=== PATIENT | male | born 1965 | race Caucasian/White ===

== ENCOUNTER 2020-03-22 00:50 | Outpatient (CLI) | payer BC, SELFPAY ==
[2020-03-22 19:19] LABS: SARS-CoV-2 RNA PCR Negative
== END 2020-03-22 00:51 | disposition home or self-care (01) ==
LOC: ANHCOVIDDT 00:51
PROVIDERS: PCP Internal Medicine; Visit Provider Internal Medicine Gastroenterology
DX: Z01.812 Encounter for preprocedural laboratory examination (principal); Z20.828 Contact with and (suspected) exposure to other viral communicable diseases
CPT/HCPCS: 87635; C9803; U0003

== ENCOUNTER 2020-03-24 00:48 | Day surgery (SDC) | payer BC, SELFPAY ==
[2020-03-20 13:59] VITALS: BMI 31.8
--- NOTE | 2020-03-20 14:12 | PC.NURSE ---
ATTEMPTED TO COVER PAT TOPICS WITH PATIENT. PATIENT INTERRUPTED THIS NURSE AND STATED HE WAS AT WORK AND DIDN'T HAVE TIME FOR THIS AND THIS WASN'T HIS FIRST COLONOSCOPY. I APOLOGIZED AND STATED I DIDN'T KNOW HE WAS AT WORK AND THAT HE COULD CALL ME BACK AND HE SAID THAT WAS UNNECESSARY BECAUSE HE KNOWS WHAT TO DO. RUTH LY.
[2020-03-24 06:41] VITALS: BP 104/80; PULSE 72; RESP 18; TEMP 36.4; O2SAT 98
[2020-03-24] MEDS: LACTATED RINGERS 1,000 ML 150 ML IV CONT (06:54)
--- NOTE | 2020-03-24 07:17 | PM.HPGS ---
History of Present Illness History of Present Illness Consent: Risks, benefits, and alternatives have been discussed and questions answered. Patient agrees to proceed with procedure. Chief complaint: Neoplasm Screening Narrative: Edward Manuel is a 54 year old male Here for colon cancer screening [facility] Social History Social History Smoking packs per day: 2 Smoking cigarettes per day: 40.0 Years smoked: 15 Smoking pack-years: 30.00 Smoking status: Former smoker Tobacco type: cigarettes Alcohol intake: current Drinks per week: 0 Alcohol use details: 1 OR 2 DRINKS PER MONTH Substance use: current Substance use type: marijuana Living arrangements: with family Spiritual care concerns: No Meds Home Medications and Allergies Home Medications Medication Instructions Recorded Confirmed Type lisinopril 20 mg PO DAILY 03/20/20 03/20/20 History loratadine [Claritin] 10 mg PO DAILY 03/20/20 03/20/20 History sildenafil 100 mg PO PRN 03/20/20 03/20/20 History testosterone 2 pump TOPICAL DAILY 03/20/20 03/20/20 History zolpidem 10 mg PO PRN PRN 03/20/20 03/20/20 History Allergies Allergy/AdvReac Type Severity Reaction Status Date / Time morphine AdvReac Mild Other Verified 03/24/20 06:40 Vital Signs Vital Signs - 24 hr 03/24/20 06:41 Temperature 36.4 C Pulse Rate 72 Respiratory Rate 18 Blood Pressure 104/80 Pulse Oximetry 98 Exam Resp: Auscultation: clear to auscultation bilaterally Cardio: Rate: regular rate Rhythm: regular rhythm GI: GI Palp: Yes Soft to palpation and No Tenderness to palpation present (GI) Assessment and Plan Assessment and plan (1) Colon cancer screening: Code(s): Z12.11 - Encounter for screening for malignant neoplasm of colon Status: Acute Assessment and Plan: Colonoscopy with possible biopsy or polypectomy or cautery or injection of substances.
--- NOTE | 2020-03-24 07:30 | WPDANESEPPF ---
Anes - Initial Pre Proc Eval Procedure: Operation Date: 03/24/20 08:00 Proposed Procedures p Screening Colonoscopy - Brandon Becker MD Date/Time: 03/24/20 07:30 Surgeon: Brandon Becker MD Pre Op Diagnosis: Neoplasm Screening Patient Data Age: 54 Gender: M Height: 5 ft 9 in Weight: 97.3 kg Last Vital Signs Temp 97.6 F 03/24/20 06:41 Pulse 72 03/24/20 06:41 Resp 18 03/24/20 06:41 BP 104/80 03/24/20 06:41 Pulse Ox 98 03/24/20 06:41 Allergies Allergy/AdvReac Type Severity Reaction Status Date / Time morphine AdvReac Mild Other Verified 03/24/20 06:40 Home Medications Medication Instructions Recorded Confirmed Type lisinopril 20 mg PO DAILY 03/20/20 03/20/20 History loratadine [Claritin] 10 mg PO DAILY 03/20/20 03/20/20 History sildenafil 100 mg PO PRN 03/20/20 03/20/20 History testosterone 2 pump TOPICAL DAILY 03/20/20 03/20/20 History zolpidem 10 mg PO PRN PRN 03/20/20 03/20/20 History Patient hx anesthesia problems: none Family hx anesthesia problems: none PMFSH Past Medical History Medical History (Updated 03/24/20 @ 07:26 by Mich Mac MD) GERD (gastroesophageal reflux disease) Hypertension Social History Social History Smoking packs per day: 2 Smoking cigarettes per day: 40.0 Years smoked: 15 Smoking pack-years: 30.00 Smoking status: Former smoker Tobacco type: cigarettes Alcohol intake: current Drinks per week: 0 Alcohol use details: 1 OR 2 DRINKS PER MONTH Substance use: current Substance use type: marijuana Living arrangements: with family Spiritual care concerns: No Anes - Eval Final PreProcedure Day of Procedure 03/24/20 07:30 Patient weight: overweight Heart: regular rate and rhythm Lungs: clear to auscultation Airway: Mallampati scale class II Neurological: alert and oriented Last oral intake: >/= 8 hours ASA classification: II Emergent: no Anesthetic plan: proceed Anesthesia type and monitoring: general GIVS and standard monitoring Informed Consent: The patient's anesthetic plan and its attendant risks and benefits were discussed with the patient/family/POA. Questions were solicited and answers provided to the satisfaction of the patient/family/POA.
[2020-03-24] MEDS: SIMETHICONE ORAL SUSPENSION 20 MG/0.3 ML 30 ML BOTTLE 0.6 ML IRRIGATION (08:05)
[2020-03-24 08:11] VITALS: BP 92/51; PULSE 67; RESP 19; O2SAT 98
[2020-03-24 08:22] VITALS: BP 106/64; PULSE 56; RESP 17; O2SAT 100
[2020-03-24 08:31] VITALS: BP 115/60; PULSE 56; RESP 19; O2SAT 100
== END 2020-03-24 08:40 | disposition home or self-care (01) ==
PROVIDERS: PCP Internal Medicine; Visit Provider Internal Medicine Gastroenterology
PROC: 0DJD8ZZ Inspection of Lower Intestinal Tract, Via Natural or Artificial Opening Endoscopic (ICD-10-PCS; CPT 45378; principal; 2020-03-24 08:00)
DX: Z12.11 Encounter for screening for malignant neoplasm of colon (principal); D12.5 Benign neoplasm of sigmoid colon; K57.30 Diverticulosis of large intestine without perforation or abscess without bleeding; K64.8 Other hemorrhoids; I10 Essential (primary) hypertension; K21.9 Gastro-esophageal reflux disease without esophagitis; Z87.891 Personal history of nicotine dependence; F12.90 Cannabis use, unspecified, uncomplicated
CPT/HCPCS: 45385; 88305; J2704; J7120

== ENCOUNTER 2021-09-14 14:12 | Outpatient (CLI) | payer BC, SELFPAY ==
--- NOTE | ~2021-09-14 | MR_ITS ---
EXAMINATION: MR lumbar spine wo con DATE: 09/14/2021 14:58 INDICATION: Low back pain. TECHNIQUE: Magnetic resonance imaging (MRI) of the lumbar spine was performed without intravenous con trast. Sequences included sagittal T2-weighted FSE, sagittal T2-weighted FS FSE, sagittal T1-weighted FSE, and axial T2-weighted FSE. COMPARISON: None FINDINGS: There is 3 degrees dextrocurvature of lumbar spine. There is 3 mm retrolisthesis of L2 on L 3. Vertebral body heights are normal. There is mildly decreased disc height at L2-L3 and L3-L4, moder ately decreased disc height at L4-L5, and severely decreased disc height at L5-S1 with endplate remod eling. The distal spinal cord signal intensity is normal. The conus medullaris is at L2. The followin g disc levels are specifically discussed: L1-L2: The disc does not extend beyond the endplate margin. There is mild bilateral facet joint osteo arthritis. There is no neural foraminal stenosis. There is no central canal stenosis. L2-L3: The disc is bulging and has an annular fissure. There is moderate right and mild left facet roberta int osteoarthritis. There is mild bilateral neural foraminal stenosis. There is mild central canal st enosis. L3-L4: The disc is bulging and has an annular fissure. There is severe bilateral facet joint osteoart hritis. There is mild right and moderate left neural foraminal stenosis. There is mild central canal stenosis. L4-L5: The disc is bulging and has an annular fissure. There is severe bilateral facet joint osteoart hritis. There is mild right and moderate left neural foraminal stenosis. There is mild central canal stenosis. L5-S1: The disc is bulging and has an annular fissure. There is severe bilateral facet joint osteoart hritis. There is mild right and moderate left neural foraminal stenosis. There is mild central canal stenosis. IMPRESSION: 1. Severe lumbar spondylosis. Reviewed, dictated and finalized at location A.
== END 2021-09-14 14:13 | disposition home or self-care (01) ==
PROVIDERS: PCP Internal Medicine; Visit Provider Internal Medicine
DX: M47.896 Other spondylosis, lumbar region (principal)
CPT/HCPCS: 72148

== ENCOUNTER 2023-11-20 11:56 | Outpatient (CLI) | payer MEDICAID, SELFPAY ==
--- NOTE | ~2023-11-20 | CT_ITS ---
CT Scan of the Chest without Contrast: Clinical Indication: Lung cancer screening, nicotine dependence Technique: Contiguous sections were acquired throughout the chest without intravenous contrast. Dose reduction technique was used on this scan by utilizing automated exposure control and iterative recon struction technique. The dose-length product (DLP) was 140.55 mGy-cm. Findings: There is no evidence of any significant mediastinal, hilar or axillary lymphadenopathy. Coronary carmela ry calcifications are present. Small to moderate hiatal hernia present. There is no evidence of pleural or pericardial effusion. The lungs are clear. No pulmonary nodules or infiltrates are noted. Images through the upper abdomen reveal peripherally calcified spinal axis. Impression: Lung RADS 1: Negative. 12 month follow-up screening CT advised. Reviewed, dictated and finalized at [facility]. Impression: Lung RADS 1: Negative. 12 month follow-up screening CT advised.
--- NOTE | ~2023-11-20 | MR_ITS ---
Procedure: MR lumbar spine wo con Ordering provider: Bertrand Hill, History: 58 years Male with . LUMBAR RADICULOPATHY . Comparison: September 18, 2021 Technique: MRI lumbar spine without contrast. FINDINGS: CONUS MEDULLARIS: Normal in position and appearance. The conus ends at the level of L1/L2. LUMBAR VERTEBRAL BODIES: Postoperative changes are seen at the level of L3, L4 and L5 with a status p ost laminectomy at the level of L4. No compression fracture or subluxation. Normal marrow signal. DISK SPACES: Narrowing of the disc L4-L5 is seen. Disc protrusion is seen at the level of L2-L3. T12-L1: No stenosis. L1-L2: No stenosis. L2-L3: No stenosis. Disc protrusion with mild to moderate spinal canal stenosis. Bilateral narrowing of the foraminal with nerve root compression is noted. Thickening of the ligamenta flava is seen in the area. T2 hyperintense signal areas seen posteriorly in the spinal canal which appears slightly h yperintense on T1-weighted images another area is also seen opposite L3. L3-L4: No stenosis. Mild disc bulge. L4-L5: No stenosis. Mild disc bulge. Cystic changes are seen in the laminectomy area most likely flu id collection measuring 12.6 x 1.1 cm.. L5-S1: No stenosis. Diffuse disc bulge with narrowing of the foramina and the root compression bilat erally PARASPINOUS SOFT TISSUES: Normal. IMPRESSION: 1. Postoperative changes of the level of L3, L4 and L5. 2. Disc protrusion at the level of L2-L3 With moderate spinal canal stenosis and with T2 hyperintens e signal area seen posteriorly. Bony fragment is a possibility although not definite. 3. Fluid collection seen posterior to the L4 in the area of the laminectomy measuring 12.6 x 1.1 cm. 4. Diffuse disc bulge at the level of L5-S1 with bilateral lateral neural foramen and with compressi on. Reviewed, dictated and finalized at location A. IMPRESSION: 1. Postoperative changes of the level of L3, L4 and L5. 2. Disc protrusion at the level of L2-L3 With moderate spinal canal stenosis a nd with T2 hyperintense signal area seen posteriorly. Bony fragment is a possib ility although not definite. 3. Fluid collection seen posterior to the L4 in the area of the laminectomy me asuring 12.6 x 1.1 cm. 4. Diffuse disc bulge at the level of L5-S1 with bilateral lateral neural fora men and with compression.
== END 2023-11-20 11:57 | disposition home or self-care (01) ==
PROVIDERS: PCP Internal Medicine; Visit Provider Internal Medicine
DX: Z12.2 Encounter for screening for malignant neoplasm of respiratory organs (principal); M54.16 Radiculopathy, lumbar region; Z87.891 Personal history of nicotine dependence; Z98.890 Other specified postprocedural states; M48.061 Spinal stenosis, lumbar region without neurogenic claudication; M51.37 Other intervertebral disc degeneration, lumbosacral region; Z98.1 Arthrodesis status
CPT/HCPCS: 71271; 72148

== ENCOUNTER 2024-02-21 08:46 | Emergency (ER) | payer OTHER, SELFPAY ==
[2024-02-21] VITALS (15 sets, daily range): BP systolic 139–231; BP diastolic 78–134; PULSE 61–147; RESP 12–27; TEMP 35.8–36.6; O2SAT 97–100
--- NOTE | ~2024-02-21 | CT_ITS ---
EXAMINATION: CT facial bones w con DATE: 02/21/2024 09:50 INDICATION: Jose's angina on the left. TECHNIQUE: Computed tomography (CT) of the facial bones and maxillofacial region was performed with 7 5 mL Omnipaque 350 intravenous contrast. Automated exposure control and iterative reconstruction tech [employer] were employed. The dose-length product was 797.73 mGy-cm. COMPARISON: None. FINDINGS: There is left face soft tissue swelling. There is leftward deviation of the nasal septum. T here is mild mucosal thickening in the paranasal septum sinuses. There are periapical lucencies at to oth 19 with breech of the buccal cortex of the alveolar process with 10 x 2 mm subperiosteal abscess. There are changes of anterior fusion procedure from C5 C7. IMPRESSION: 1. Periapical lucencies of tooth 19 with subperiosteal abscess. Reviewed, dictated and finalized at location A.
--- NOTE | ~2024-02-21 | XR_ITS ---
EXAMINATION: XR abdomen gastric tube insert DATE: 02/21/2024 10:45 INDICATION: Nasogastric tube placement. TECHNIQUE: A supine view of the abdomen was obtained. COMPARISON: None. FINDINGS: The lower abdomen is excluded. The nasogastric tube tip is in the stomach. IMPRESSION: 1. Nasogastric tube tip in the stomach. Reviewed, dictated and finalized at location A.
--- NOTE | ~2024-02-21 | XR_ITS ---
EXAMINATION: XR chest ET placement DATE: 02/21/2024 10:45 INDICATION: Intubation. TECHNIQUE: A single frontal view of the chest was obtained. COMPARISON: Chest CT 11/20/2023 FINDINGS: There is no pneumonia, pleural effusion, or pneumothorax. The heart size is normal. The end otracheal tube tip is 4.1 cm above the randal. The nasogastric tube tip is beyond the inferior margin of the radiograph, but at least to the stomach. There are changes of anterior fusion procedure in ce rvical spine. IMPRESSION: 1. No acute cardiopulmonary disease. Reviewed, dictated and finalized at location A.
[2024-02-21] MEDS: HYDROmorphone HCL INJ (*CRX) 1 MG/ML SYR IV PUSH (09:41)
[2024-02-21] MEDS: LACTATED RINGERS 1,000 ML 999 ML IV CONT (09:41)
[2024-02-21] MEDS: AMPICILLIN SULB 3 GM/NS 100 ML 3 GM/100 ML VIAL IVPB (09:41)
[2024-02-21 09:53] LABS: Basophils Absolute Auto 0.1 K/mm3 (0.0-0.1); Basophils Percent Auto 0.6 % (0.2-1.2); Eosinophils Absolute Auto 0.2 K/mm3 (0-0.3); Hematocrit 40.6 % (42.0-52.0); Hemoglobin 13.9 g/dL (14.0-18.0); Immature Granulocyte Absolute 0.04 K/mm3 (0.00-0.031); Immature Granulocyte Percent A 0.4 % (0-0.5); Lymphocytes Absolute Auto 1.26 K/mm3 (0.9-3.2); Lymphocytes Percent Auto 12.8 % (18.3-44.2); Mean Corpuscular HGB Conc 34.2 g/dl (32-36); Mean Corpuscular Hemoglobin 31.8 pg (26-34); Mean Corpuscular Volume 92.9 fl (80-100); Mean Platelet Volume 10.5 fl (7.4-10.4); Monocytes Absolute Auto 0.8 K/mm3 (0.1-0.6); Monocytes Percent Auto 8.1 % (2.6-8.5); Neutrophils Absolute Auto 7.5 K/mm3 (1.3-6.7); Neutrophils Percent Auto 76.1 % (45.5-73.1); Platelet Count Result 202 k/mm3 (150-375); Red Blood Count 4.37 M/mm3 (4.6-6.20); Red Cell Distribution Width 12.7 % (11.5-14.5); White Blood Count 9.9 K/mm3 (4.5-10.0)
[2024-02-21 09:59] LABS: Estimated CRCL calculation 86 ml/min; Estimated Glomerular Filt Rate > 60
[2024-02-21 10:01] LABS: Anion Gap 10 mmol/L (4-12); Blood Urea Nitrogen 14 mg/dL (9-20); Calcium 9.1 mg/dL (8.4-10.2); Carbon Dioxide 21 mmol/L (22-30); Chloride 106 mmol/L (98-107); Estimated CRCL calculation 96 ml/min; Estimated Glomerular Filt Rate > 60; Glucose 114 mg/dL (65-110); Lactic Acid Reflex 1.4 mmol/L (0.7-2.0); Potassium 4.2 mmol/L (3.4-5.0); Sodium 137 mmol/L (137-145)
[2024-02-21 10:04] LABS: INR 0.9; Prothrombin Time 12.5 Seconds (11.1-14.7)
[2024-02-21 10:05] LABS: Partial Thromboplastin Time 21.5 Seconds (22.3-36.8)
--- NOTE | 2024-02-21 10:20 | PC.NURSE ---
EDP Dr Gomez and resp at bedside to prepare for intubation
--- NOTE | 2024-02-21 10:23 | PC.NURSE ---
Dr Chauhan at bedside, pt given 20 etomidate, 100 rocuronium given for sedation
--- NOTE | 2024-02-21 10:27 | PC.NURSE ---
Pt intubated with 7.5 tube, 23 @ the lip, positive color change, equal chest rise and fall
--- NOTE | 2024-02-21 10:30 | PC.NURSE ---
100 bolus Fentanyl given per [facility] EDP Dr Chauhan at bedside, Fentanyl drip initiated at 10mls/hr per weight
[2024-02-21] MEDS: FENTANYL 2,500MCG/NS250ML(*CRX 2,500 MCG/250 ML BAG 10 MCG (10:33)
[2024-02-21] MEDS: RAPID SEQUENCE INTUBATION KIT 1 EACH (10:35)
--- NOTE | 2024-02-21 10:48 | PC.NURSE ---
Per Dr Tien LEWIS at pt bedside, 5mg Versed given IVP for pt agitation and elevated BP
--- NOTE | 2024-02-21 11:06 | PC.NURSE ---
Call was placed to [facility] per Dr Chauhan. ENT Dr. Parada. [facility] did not accept pt.
--- NOTE | 2024-02-21 11:10 | PC.NURSE ---
[facility] center was called for transfer per Dr. Chauhan. [facility] advised us to call elsewhere for transfer placement with what the pt has going on.
--- NOTE | 2024-02-21 11:31 | PC.NURSE ---
[facility] in [facility] was called per Dr. Chauhan. [facility] accepted the pt. for ICU Accepting Dr is Dr. Johnson. Pt. will be going to ALS ground, Pt going on a ventilator.
[2024-02-21] MEDS: PROPOFOL IV EMULSION 100 ML 2.85 MG IV CONT (11:44)
--- NOTE | 2024-02-21 12:13 | PC.NURSE ---
Spoke with pt contact, Hiro and made him aware of situation and asked if he had a contact for pt siblings. He states he will attempt to get ahold of one of his sisters.
--- NOTE | 2024-02-21 12:35 | PC.NURSE ---
Called ground ALS could not get one without a 3 to 5 hour wait. Called [facility] per Dr. Aaron request. [facility] accepted at 1207 with an ETA of 1230. [facility] arrived @1230 to pt room 8.
--- NOTE | 2024-02-21 13:00 | PC.NURSE ---
Fentanyl drip d/cd by helicopter RN, flight team. 20mls withdrawn from IV bag. This RN wasted remainder of contents w/ Hiro Mcdonough RN.
--- NOTE | 2024-02-21 13:00 | PCRCNOTE ---
Assisted flight team in transferring patient to their ventilator and over to their stretcher.
--- NOTE | 2024-02-21 19:40 | ED.DENTAL ---
HPI - Dental/Oral General Chief complaint: Dental/Oral Stated complaint: absccess tooth Time Seen by Provider: 02/21/24 09:17 History of Present Illness HPI Narrative: This is a 58-year-old otherwise healthy male presents to the emergency department was significant facial swelling and pain in left side of his face. He states that over last 24 hours he initially had a pain in the lower side of his jaw consistent with a tooth infection. He was prescribed antibiotics by his dentist including Augmentin and he is taking 2 pills of this. He woke up today with significant facial swelling that is acutely worsening and rapidly expanding. Facial swelling started in the left lateral aspect of his lower jaw and started involving the left cheek and left side of his mouth. Swelling has acutely worsened every time he looks in the mirror according to the patient. He states that the swelling now involves his lower jaw underneath his chin and starting the cross over to the right side as well. He notices he has pronation changes and some uncomfortable swallowing but is able to tolerate his secretions and swallow food and water. Denies any headache, vision changes, fever, chills, chest pain, shortness a breath, neck pain otherwise. As a trauma, injuries or dental procedures recently. Teeth map: 1. Dusky appearance with dental caries, no periapical abscess, significant submandibular and left-sided facial swelling Related Data Home Medications Medication Instructions Recorded Confirmed lisinopril 20 mg tablet 20 mg PO DAILY 03/20/20 03/20/20 loratadine 10 mg tablet (Claritin) 10 mg PO DAILY 03/20/20 03/20/20 sildenafil 100 mg tablet 100 mg PO PRN 03/20/20 03/20/20 testosterone 2 pump topical DAILY 03/20/20 03/20/20 zolpidem 10 mg tablet 10 mg PO PRN PRN Insomnia 03/20/20 03/20/20 Allergies Allergy/AdvReac Type Severity Reaction Status Date / Time morphine AdvReac Mild Other Verified 02/21/24 09:13 Review of Systems Review of Systems: As reviewed above in HPI [facility] Past Medical History Medical History GERD (gastroesophageal reflux disease) Hypertension Social History Social History Smoking packs per day: 2 Smoking cigarettes per day: 40.0 Years smoked: 15 Smoking pack-years: 30.00 Smoking status: Former smoker Tobacco type: cigarettes Alcohol intake: current Drinks per week: 0 Alcohol use details: 1 OR 2 DRINKS PER MONTH Substance use: current Substance use type: marijuana Living arrangements: with family Spiritual care concerns: No Exam Narrative: GENERAL: Well nourished and not in any acute respiratory or physical distress HEAD: [Normocephalic, atraumatic.] EYES: [PERRLA and EOMI.] ENT: Significant facial swelling and the left side of his face, involving the cheek, submandibular region on the left side more than the right but started cross bilaterally. Significant tenderness and warmth, irritation with palpation of the left-sided lower jaw and face. Intraorally he has some elevations on the left floor of the mouth but the uvula is midline without any posterior or pharyngeal exudates or swelling. He is able to phonate and protrude his tongue easily. No pooling of secretions. No periapical abscess be does have a dental infection around tooth 19 with tenderness to palpation. Fluctuance noted with manipulation of the left-sided face and lower jaw, submandibular region. Overlying erythema is minimal. NECK: As described above, no cervical spinal tenderness palpation, previous fusion noted CHEST: [Clear to auscultation. No respiratory distress.] HEART: [Regular rate and rhythm]. No murmur heard. [Normal peripheral pulses.] ABDOMEN: [Soft, nondistended], [nontender], [No rigidity or guarding] EXTREMITIES: Normal range of motion. [No edema.] SKIN: Warm, dry, no rash. NEURO: [No f
== END 2024-02-21 12:58 | disposition short-term general hospital (02) ==
PROVIDERS: Emergency Provider Student in an Organized Health Care Education/Training Program; PCP Internal Medicine
DX: K12.2 Cellulitis and abscess of mouth (principal); L03.211 Cellulitis of face; I10 Essential (primary) hypertension; K21.9 Gastro-esophageal reflux disease without esophagitis; Z87.891 Personal history of nicotine dependence; F12.90 Cannabis use, unspecified, uncomplicated
CPT/HCPCS: 31500; 36415; 70487; 80048; 83605; 85025; 85610; 85730; 86850; 86900; 86901; 96365; 96366; 96367; 96375; 99285; J0295; J1170; J2250; J2704; J3010; J7120; Q9967